=== PATIENT | female | born 1960 | race Caucasian/White ===

== ENCOUNTER 2022-01-18 19:43 | Emergency (ER) | payer SELFPAY ==
[~2022-01-18] VITALS: Ht 165.1 cm; Wt 85.3 kg
--- NOTE | 2022-01-18 20:52 | EKG ---
[facility] [address] [facility] [place], [place] [address] Signed Normal sinus rhythm Possible Lateral infarct , age undetermined Abnormal ECG No previous ECGs available Confirmed by CORY POWERS MD ([id number]) on 01/18/2022 8:52:15 PM Electronically Signed By: CORY POWERS MD 01/18/222051 PATIENT NAME: KARLO SAMUEL Electrocardiogram DATE OF : 56 PHYSICIAN: CORY POWERS MD REPORT #: [id number] REPORT IS CONFIDENTIAL AND NOT TO BE RELEASED WITHOUT AUTHORIZATION
== END 2022-01-18 22:54 | disposition home or self-care (01) ==
LOC: ED 19:43
DX: K21.9 Gastro-esophageal reflux disease without esophagitis (principal); K31.84 Gastroparesis; R07.89 Other chest pain; Z88.8 Allergy status to other drugs, medicaments and biological substances; Z88.0 Allergy status to penicillin
CPT/HCPCS: 36415; 71045; 80053; 83690; 84484; 85025; 85379; 93005; 93010; 96374; 96375; 99285-25; G0480; J2765; J7121